=== PATIENT | female | born 1975 | race Caucasian/White ===

== ENCOUNTER 2019-04-07 19:40 | Emergency (ER) | payer OTHER ==
--- OUTSIDE RECORDS SUMMARY | 2019-04-07 19:46 | XMS REPORT | Continuity of Care Document ---
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 Diabetes & Metabolism Problems Description No Information Available Social History Type Date Description Comments Sex Unknown Tobacco Use Start: Unknown Never Smoked Cigarettes Smoking Status Reviewed: 03/08/19 Never Smoked Cigarettes Tobacco Use Start: Unknown Patient has never smoked Exercise Type/Frequency Exercises regularly Allergies, Adverse Reactions, Alerts Description No Known Drug Allergies Medications Active Medications SIG Qnty Indications Ordering Provider Date Tramadol HCL 1-2 tablets by 20tabs Hong Matthews, 02/23/2019 50mg mouth every 6 MD Tablets hours as needed pain Aygestin one tablet po 30tabs N92.0 Mane Munoz MD 09/02/2018 5mg Tablets daily Magnesium 1 by mouth every Unknown 250mg Tablets day Ibuprofen as needed Unknown 200mg Tablets Diclofenac Sodium 1 tab po twice a Unknown 25mg day prn Tablets DR Medications Administered in Office Medication SIG Qnty Indications Ordering Provider Date Celestone 3 mg and 3mg Hong Matthews MD 11/16/2018 Injection Immunizations Description No Information Available Vital Signs Date Vital Result Comment 03/08/2019 10:42am Height 63 inches 5'3" Weight 144.00 lb Heart Rate 78 /min BP Systolic 110 mmHg BP Diastolic 68 mmHg Respiratory Rate 16 /min Body Temperature 97.0 F Pain Level 6 BMI (Body Mass Index) 25.5 kg/m2 02/01/2019 1:06pm Height 63 inches 5'3" Heart Rate 74 /min BP Systolic 120 mmHg BP Diastolic 68 mmHg Respiratory Rate 16 /min Body Temperature 98.0 F Pain Level 7 Results Description No Information Available Procedures Date Code Description Status 02/23/2019 68607 Dequervains-Tendon Sheath Incision/Extensor Completed Sheath,Wrist 02/23/2019 06870 Dequervains-Tendon Sheath Incision/Extensor Completed Sheath,Wrist 02/23/2019 34797 Dequervains-Tendon Sheath Incision/Extensor Completed Sheath,Wrist 12/28/2018 [id number] Mammogram Completed 11/16/2018 49058 Inject Tendon Sheath Or Ligament Aponeurosis Eg Plantar Completed Fascia 12/24/2017 [id number] Mammogram Completed Medical Devices Description No Information Available Encounters Type Date Location Provider Dx Diagnosis Office Visit 02/01/2019 [facility] Hong Matthews [id number] Radial styloid 1:00p at [place] tenosynovitis [de Quervain] Office Visit 11/16/2018 [facility] Hong Matthews [id number] Radial styloid 10:00a at [place] tenosynovitis [de Quervain] Assessments Date Code Description Provider 03/08/2019 M65.4 Radial styloid tenosynovitis [de Quervain] Hong Matthews MD 02/23/2019 M65.Celina Radial styloid tenosynovitis [de Quervain] Hong Matthews MD 02/23/2019 M65.4 Radial styloid tenosynovitis [de Quervain] KAILASH Pavon 02/23/2019 M65.4 Radial styloid tenosynovitis [de Quervain] Hong Matthews MD 02/01/2019 M6Wil.Celina Radial styloid tenosynovitis [de Quervain] Hong Matthews MD 11/16/2018 M65.Celina Radial styloid tenosynovitis [de Quervain] Hong Matthews MD Plan of Treatment 03/08/2019 - Hong Matthews MDM65.4 Radial styloid tenosynovitis [de Quervain] Follow up:Follow up: As needed Functional Status Description No Information Available Mental Status Description No Information Available Referrals Description No Information Available
[2019-04-07 19:54] VITALS: BP 139/80
[2019-04-07] MEDS ORDERED: Triamcinolone Acetonide* 40 MG/ML 1 ML VIAL IM ONE (20:29)
--- NOTE | 2019-04-07 20:36 | UC ---
Throat Pain/Nasal Pedrito HPI - HPI Summary HPI Summary: The patient is a 43-year-old female who has had sinus pressure and pain for 6 weeks. Initially she had taken a Z-Marcelino. This did not help her symptoms. She was later started on amoxicillin and finished a 10 day course today. She states that she still has significant postnasal drip and cough. She has some sinus pressure and pain. She has some ear pressure. And today she developed left lateral chest wall pain with cough. She denies any shortness of breath. She has not had a fever during this timeframe. She denies any dental or gum pain. She is going to travel to [facility] on April 10. - History of Current Complaint Chief Complaint: UCGeneralIllness Stated Complaint: EAR PRESSURE, PAIN IN SIDE Time Seen by Provider: 04/07/19 20:02 Hx Obtained From: Patient Hx Last Menstrual Period: 1.5 weeks ago Onset/Duration: Gradual Onset, Lasting Weeks Severity: Moderate Pain Intensity: 6 Pain Scale Used: 0-10 Numeric Cough: Productive - in AM Associated Signs & Symptoms: Positive: Sinus Discomfort, Nasal Discharge. Negative: Dysphagia, Hoarseness, Fever, Vomiting, Rash - Epiglottits Risk Factors Epiglottis Risk Factors: Negative - Allergies/Home Medications Allergies/Adverse Reactions: Allergies Allergy/AdvReac Type Severity Reaction Status Date / Time clavulanic acid Allergy Mild Diarrhea Verified 04/07/19 20:03 [From Augmentin] Home Medications: Home Medications Amoxicillin 875 mg PO DAILY WITH MEAL 04/07/19 [History Confirmed 04/07/19] PMH/Surg Hx/FS Hx/Imm Hx Previously Healthy: Yes - Surgical History Surgical History: Yes - Social History Alcohol Use: Rare Substance Use Type: None Smoking Status (MU): Never Smoked Tobacco Review of Systems All Other Systems Reviewed And Are Negative: Yes Constitutional: Positive: Negative Skin: Positive: Negative Eyes: Positive: Negative ENT: Positive: Ear Ache - pressure, Sinus Congestion, Sinus Pain/Tenderness. Negative: Nasal Discharge Respiratory: Positive: Cough Cardiovascular: Positive: Chest Pain - left sided below breast Gastrointestinal: Positive: Negative Genitourinary: Positive: Negative Motor: Positive: Negative Neurovascular: Positive: Negative Musculoskeletal: Positive: Negative Neurological: Positive: Negative Psychological: Positive: Negative Physical Exam Triage Information Reviewed: Yes Appearance: Well-Appearing, No Pain Distress, Well-Nourished Vital Signs: Initial Vital Signs Temp 98.8 F 04/07/19 19:48 Pulse 92 04/07/19 19:48 Resp 18 04/07/19 19:48 BP 139/80 04/07/19 19:48 Pulse Ox 100 04/07/19 19:48 Vital Signs Reviewed: Yes Eyes: Positive: Conjunctiva Clear ENT: Positive: Hearing grossly normal, Nasal congestion, TM bulging - R, left TM retracted, Uvula midline. Negative: Nasal drainage, TMs normal, TM red, Tonsillar swelling, Tonsillar exudate, Muffled voice, Hoarse voice, Dental tenderness, Sinus tenderness Dental Exam: Normal Neck: Positive: Nontender, No Lymphadenopathy Respiratory: Positive: Lungs clear, Normal breath sounds, No respiratory distress, No accessory muscle use. Negative: Chest non-tender - see image Cardiovascular: Positive: RRR, No Murmur Musculoskeletal: Positive: ROM Intact, No Edema Neurological: Positive: Alert Psychological Exam: Normal Images Front/Back of Body, Lg ([place]): 1 - tender here Throat Pain/Nasal Course/Dx - Differential Dx/Diagnosis Provider Diagnosis: Rhinosinusitis, Serous otitis media, Elevated BP without diagnosis of hypertension Discharge ED - Sign-Out/Discharge Documenting (check all that apply): Patient Departure All imaging exams completed and their final reports reviewed: No Studies - Discharge Plan Condition: Stable Disposition: HOME Patient Education Materials: Rhinosinusitis (ED), Serous Otitis Media (ED), Chest Wall Pain (ED) Referrals: Luis Enrique Harris MD [Primary Care Provider] - 2 Weeks (BP recheck in 2-20 weeks) Additional Instructions: You had a steroid shot Continue saline nasal spray and/or neti pot heat to chest wall aleve -take two twice daily with food for pain I suggest that you use AFRIN NASAL SPRAY 2 sprays each nostril three times daily Start this the day before your flight recheck in [place] if you develop severe ear pain or fever you can take mucinex DM for the cough - Billing Disposition and Condition Condition: STABLE Disposition: Home
== END 2019-04-07 20:53 | disposition home or self-care (01) ==
LOC: UCEAST 19:40
DX: J32.9 Chronic sinusitis, unspecified (principal); H65.90 Unspecified nonsuppurative otitis media, unspecified ear; R05 Cough; R03.0 Elevated blood-pressure reading, without diagnosis of hypertension; R07.9 Chest pain, unspecified; Z88.0 Allergy status to penicillin
CPT/HCPCS: 99211; G0463; J3301